=== PATIENT | female | born 1950 | race Caucasian/White ===

== ENCOUNTER → 2016-12-29 07:49 | Outpatient (CLI) | payer MEDICARE ==
--- NOTE | ~2016-12-29 | EMG ---
PATIENT:SABIHA ALBARRAN DATE OF SERVICE: 12/29/16 MEDICAL RECORD: [id number] DATE OF : 46 LOCATION: [facility] ADMISSION DATE: REFERRING PHYSICIAN: KEN ARENAS INTERPRETING PHYSICIAN: ROMINA BAEZA MD DATE OF SERVICE: 12/29/2016 REFERRED BY: Dr. Ken Arenas from [place] as an outpatient. ELECTROMYOGRAPHIC DATA: Electromyographic examination is limited to both lower extremities and is limited to the nerve conduction studies only as the patient is currently on Xarelto. In the right lower extremity, right peroneal motor stimulation elicits a compound motor action potential with a distal latency of 3.7 milliseconds, peak amplitude of only 1 millivolt and calculated conduction velocity of 38 meters per second. Right tibial motor stimulation elicits a compound motor action potential with a distal latency of 3.6 milliseconds, peak amplitude of only 260 microvolts. Proximal stimulation does not elicit a reliable response. The calculated conduction velocity is not therefore obtained. Antidromic right sural sensory stimulation elicits no reliable response. The right lower extremity H reflex recording at gastrocsoleus is absent. In the left lower extremity, left peroneal motor stimulation elicits a compound motor action potential with a distal latency of 3.8 milliseconds, peak amplitude of only 1 millivolt and calculated conduction velocity of 39 meters per second. Left tibial motor stimulation elicits a compound motor action potential with a distal latency of 5.4 milliseconds and the amplitude of only 800 microvolts. Once again, proximal stimulation elicits no reliable response. Antidromic left sural sensory stimulation elicits no reliable response. The left lower extremity H reflex recording at gastrocsoleus is absent. Needle electrode examination is not performed at this time. 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 TRANSINT:[id number] Voice Confirmation ID: [id number] DOCUMENT ID: [id number] ROMINA BAEZA MD CC: [id number] DICTATION DATE: 12/29/16905 [employer] EXEC[employer]IVE: 12/29/16 1139 [facility] [address] [place] [address]
== END | disposition home or self-care (01) ==
LOC: D.CN 07:49
DX: M99.63 Osseous and subluxation stenosis of intervertebral foramina of lumbar region (principal)

== ENCOUNTER → 2018-02-02 13:10 | Outpatient (CLI) | payer MEDICARE | END | disposition home or self-care (01) | LOC: D.MRI 13:10 | DX: M54.16 Radiculopathy, lumbar region (principal) ==